=== PATIENT | male | born 1970 | race Caucasian/White ===

== ENCOUNTER → 2021-12-14 | Outpatient (CLI) | payer OTHER ==
[~2021-12-14] MED LIST: ASPIR-LOW81 MG PO; BRILINTA 90 MG90 MG PO; KENALOG CREAM 015 GM TOP; LIPITOR TAB 2020 MG PO; LOPRESSOR 25 MG25 MG PO; MOBIC15 MG PO; NITROGLYCERIN0.4 MG SL; NORVASC 5 MG TAB5 MG PO; PERCOCET 10-321 EACH PO; ZESTORETIC 10-1 EACH PO; ZOFRAN4 MG PO
== END ==
LOC: HEART 5 08:13
DX: Z01.810 Encounter for preprocedural cardiovascular examination (principal); R07.9 Chest pain, unspecified; R00.2 Palpitations
CPT/HCPCS: 78452; A9502; J2785

== ENCOUNTER → 2022-02-17 | Outpatient (CLI) | payer BC, OTHER ==
[~2022-02-17] MED LIST changes: +AMLODIPINE BESY10 MG PO; +BUSPAR 10MG10 MG PO; +COZAAR100 MG PO; +HYDROCHLOROTHIA25 MG PO; +LYRICA50 MG PO; +METOPROLOL TART25 MG PO; +OXYCODONE-ACET1 EACH PO; +PROTONIX 40 MG40 M1 PO; +RANEXA500 MG PO; +REMERON30 MG PO; +VENLAFAXINE H37.5 M2 PO
[2022-02-17 07:18] LABS: HEMOGLOBIN 16.4 gm/dl (14.0-17.5); RED BLOOD COUNT 4.98 M/UL (4.20-5.50); WHITE BLOOD COUNT 8.8 K/UL (4.5-11.0)
[2022-02-17 07:42] LABS: BUN/CREATININE RATIO 15 (0-10)
== END ==
LOC: CATH 06:47
PROVIDERS: Internal Medicine Cardiovascular Disease
DX: I25.118 Atherosclerotic heart disease of native coronary artery with other forms of angina pectoris (principal); F17.210 Nicotine dependence, cigarettes, uncomplicated; E78.5 Hyperlipidemia, unspecified; I10 Essential (primary) hypertension; G47.33 Obstructive sleep apnea (adult) (pediatric); Z95.5 Presence of coronary angioplasty implant and graft; Z79.899 Other long term (current) drug therapy
CPT/HCPCS: 36415; 71045; 80048; 85025; 85610; 85730; 93005; 99152; C1769; C1894; J0461; J1644; J2250; J3010; Q9967